=== PATIENT | male | born 1990 ===

== ENCOUNTER 2020-10-17 06:58 | Day surgery (SDC) | payer OTHER ==
[~2020-10-17 06:58] MED LIST: ACCUPRIL40 MG PO; BUSPAR PO; INVOKAMET XR 11 EAC1 PO; PROZAC20 MG PO; REMERON15 M1; SYNTHROID100 MCG PO; TRILIPIX135 MG PO
== END 2020-10-17 16:45 | disposition home or self-care (01) ==
LOC: CIR.AMB 06:58
PROVIDERS: ATTEND Urology
DX: N20.1 Calculus of ureter (principal); Z20.822 Contact with and (suspected) exposure to COVID-19